=== PATIENT | female | born 2000 | race Caucasian/White ===

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

== ENCOUNTER → 2018-04-29 | Outpatient (CLI) | payer OTHER ==
--- NOTE | 2018-04-29 16:15 | US ---
EXAMINATION TYPE: US transvaginal DATE OF EXAM: 04/29/2018 COMPARISON: NONE CLINICAL HISTORY: R10.2 Pelvic pain. TECHNIQUE: Transvaginal (TV). Date of LMP: 04/20/18 EXAM MEASUREMENTS: Uterus: 6.6 x 2.7 x 3.7 cm Endometrial Stripe: 0.49 cm Right Ovary: Obscured by overlying bowel gas Left Ovary: Obscured by overlying bowel gas Technically difficult study, patient of large body habitus. 1. Uterus: wnl 2. Endometrium: wnl 3. Right Ovary: Obscured by overlying bowel gas 4. Left Ovary: Obscured by overlying bowel gas 5. Bilateral Adnexa: wnl 6. Posterior cul-de-sac: wnl IMPRESSION: Obscuration of the ovaries by overlying bowel gas. Uterus is unremarkable and endometrial thickness is within normal limits.
== END ==
LOC: RADUSWWP 15:35
PROVIDERS: ATTEND Family Medicine
DX: R10.2 Pelvic and perineal pain (principal)
CPT/HCPCS: 76830

== ENCOUNTER 2018-05-27 16:48 | Emergency (ER) | payer OTHER ==
[2018-05-27 17:16] VITALS: BP 120/79; PULSE 96; RESP 18; TEMP 98
--- NOTE | 2018-05-27 18:34 | ED ---
General Adult HPI - General Chief complaint: Extremity Injury, Lower Stated complaint: Lf ankle injury Time Seen by Provider: 05/27/18 17:30 Source: patient, RN notes reviewed, old records reviewed Mode of arrival: wheelchair Limitations: no limitations - History of Present Illness Initial comments: 18-year-old female patient with no pertinent past medical history presents to ED with left ankle inversion injury. Patient ports that she was carrying an object off a [employer] walking down a ramp when she actually stepped off the wall and falling. Patient reports that she didn't suffer the left ankle inversion injury and fall to the ground. Patient denies any trauma to head or neck, denies any loss of consciousness, denies any other injury. Patient has not been ambulatory since fall. Patient denies all other complaints. Patient states that she is not . Systemic: Pt denies fatigue, fever/chills, rash. Pt denies weakness, night sweats, weight loss. Neuro: Pt denies headache, visual disturbances, syncope or pre-syncope. HEENT: Pt denies ocular discharge or irritation, otalgia, rhinorrhea, pharyngitis or notable lymphadenopathy. Cardiopulmonary: Pt denies chest pain, SOB, heart palpitations, dyspnea on exertion. Abdominal/GI: Pt denies abdominal pain, n/v/d. : Pt denies dysuria, burning w/ urination, frequency/urgency. Denies new onset urinary or bowel incontinence. MSK: Pt denies loss of strength or function in extremities. Neuro: Pt denies new onset weakness, paresthesias. - Related Data Previous Rx's Medication Instructions Recorded Amoxic-Pot Clav 875-125Mg 1 tab PO Q12HR #20 tablet 06/02/16 [Augmentin 875-125] Allergies Allergy/AdvReac Type Severity Reaction Status Date / Time No Known Allergies Allergy Verified 05/27/18 17:16 Review of Systems ROS Statement: Those systems with pertinent positive or pertinent negative responses have been documented in the HPI. ROS Other: All systems not noted in ROS Statement are negative. Past Medical History Past Medical History: No Reported History History of Any Multi-Drug Resistant Organisms: None Reported Past Surgical History: No Surgical Hx Reported Past Psychological History: Anxiety, Bipolar, Depression Smoking Status: Current every day smoker Past Alcohol Use History: None Reported Past Drug Use History: None Reported General Exam - General Exam Comments Initial Comments: Constitutional: NAD, AOX3, Pt has pleasant affect. HEENT: NC/AT, trachea midline, neck supple, no lymphadenopathy. Posterior pharynx non erythematous, without exudates. External ears appear normal, without discharge. Mucous membranes moist. Eyes PERRLA, EOM intact. There is no scleral icterus. No pallor noted. Cardiopulmonary: RRR, no murmurs, rubs or gallops, no JVD noted. Lungs CTAB in anterior and posterior wolf. No peripheral edema. Abdominal exam: Abdomen soft and non-distended. Abdomen non-tender to palpation in all 4 quadrants. Bowel sounds active in LLQ. No hepatosplenomegaly. No ecchymosis Neuro: CN II-XII grossly intact. No nuchal rigidity. MSK: Left lateral malleolus mildly tender to palpation, no ecchymoses, plantar and dorsiflexion intact, patient able to wiggle toes, neurovascularly intact. No posterior calf tenderness bilaterally, homans sign negative bilaterally. Posterior tibialis and radial pulse +2 bilaterally. Sensation intact in upper and lower extremities. Full active ROM in upper and lower extremities, 5/5 stregnth. Limitations: no limitations Course Vital Signs 05/27/18 17:12 Temperature 98 F Pulse Rate 96 Respiratory 18 Rate Blood Pressure 120/79 O2 Sat by Pulse 99 Oximetry Medical Decision Making - Medical Decision Making 18-year-old female patient with no pertinent past medical history presents to ED with left ankle inversion injury. Patient ports that she was carrying an object off a [employer] walking down a ramp when she actually stepped off the wall and falling. Patient reports that she didn't suffer the left ankle inversion injury and fall to the ground. Patient denies any trauma to head or neck, denies any loss of consciousness, denies any other injury. Patient has not been ambulatory since fall. Patient denies all other complaints. Patient states that she is not . Patient vital signs stable, afebrile. Physical exam displayed: Left lateral malleolus mildly tender to palpation, no ecchymoses, plantar and dorsiflexion intact, patient able to wiggle toes, neurovascularly intact. No posterior calf tenderness bilaterally, homans sign negative bilaterally. Posterior tibialis and radial pulse +2 bilaterally. Sensation intact in upper and lower extremities. Full active ROM in upper and lower extremities, 5/5 stregnth. Plain films of left ankle and foot do not display any acute process. Patient has pain with ambulation. Patient to be placed in an Jayjay wrap and left ankle. Patient is conscious, not bear weight. Patient to follow with primary care provider tomorrow, orthopedic consult tomorrow. Patient return to ER if Symptoms worsen or new signs symptoms develop. Case discussed with Dr. España. Disposition Clinical Impression: Left ankle sprain Disposition: HOME SELF-CARE Condition: Stable Instructions (If sedation given, give patient instructions): Ankle Sprain (ED) Additional Instructions: Patient to adhere to previously discussed treatment plan and will take medication(s) as directed. Patient to follow up with PCP in 1-2 days. Patient to return to ED if symptoms do not improve. Please follow-up with primary care provider tomorrow. Please contact orthopedic consult tomorrow. Please do not bear weight on left ankle. Please use crutches. Use Tylenol/Motrin as needed for pain. Is patient prescribed a controlled substance at d/c from ED?: No Referrals: Fabiola Blandon MD [Primary Care Provider] - 1-2 days Chirag Wheat MD [STAFF PHYSICIAN] - 1-2 days
--- NOTE | 2018-05-27 18:43 | XR ---
PROCEDURE: XR foot complete LT - 3V DATE AND TIME: 05/27/2018 5:50 PM CLINICAL INDICATION: PHH; Pain TECHNIQUE: Department protocol COMPARISON: None FINDINGS: There is no fracture or malalignment. The soft tissues are unremarkable. IMPRESSION: NO ACUTE PROCESS.
--- NOTE | 2018-05-27 18:44 | XR ---
PROCEDURE: XR ankle complete LT - 3V DATE AND TIME: 05/27/2018 5:50 PM CLINICAL INDICATION: PHH; Pain TECHNIQUE: Department protocol COMPARISON: None FINDINGS: There is no fracture or malalignment. The soft tissues are unremarkable. IMPRESSION: NO ACUTE PROCESS.
== END 2018-05-27 19:09 | disposition home or self-care (01) ==
LOC: EC 16:48
DX: S93.402A Sprain of unspecified ligament of left ankle, initial encounter (principal); F17.200 Nicotine dependence, unspecified, uncomplicated; W10.2XXA Fall (on)(from) incline, initial encounter; Y93.01 Activity, walking, marching and hiking; Y93.89 Activity, other specified; Y92.812 Truck as the place of occurrence of the external cause
CPT/HCPCS: 99284

== ENCOUNTER → 2018-06-02 | Outpatient (CLI) | payer OTHER ==
--- NOTE | 2018-06-04 07:07 | MR ---
EXAMINATION TYPE: MR ankle LT wo con DATE OF EXAM: 06/02/2018 COMPARISON: Left ankle and foot x-ray 6 days ago. HISTORY: Strain injury per order. Follow injury with pain swelling and redness for one week per patie nt. Standard multiplanar, multisequence MRI departmental protocol Multiplanar, multisequence images of the left ankle were acquired. FINDINGS: Distal Achilles tendon is felt intact. Visualized plantar fascia is intact and within nain l limits. The peroneal is brevis and longus tendons are intact. There is some mild adjacent edema at level of t he mid calcaneus noted axial image 10. There is mild to moderate subcutaneous edema at level of medial malleolus axial image 25. Some focal fluid signal surrounds the PT tendon distal to this at level of anterior talus axial image 17. Addit ional focal fluid signal surrounds FDL tendon near hindfoot and midfoot junction just anterior to the calcaneus axial image 11. FHL show subtle area of central increased signal axial image 17 near taloc alcaneal junction with some surrounding fluid extending distally. Extensor tendons anteriorly are intact. The anterior tibiofibular and the anterior talofibular ligaments are felt intact on axial images. Med ial deltoid ligament is felt intact. Normal sinus tarsi fat is seen. Ankle mortise symmetry is maintained. Coronal images are suboptimal d ue to obliquity. Bone marrow signal intensity is maintained. Lisfranc joints are felt preserved. Ther e are small to moderate size posterior tibiotalar joint effusion. IMPRESSION: Areas of partial tear along the FHL tendon with tenosynovitis involving all the flexor te ndons. Mild to moderate residual soft tissue swelling over the medial malleolus. No full-thickness li gamentous or tendon tear is seen.
== END | disposition home or self-care (01) ==
LOC: RADMRIMAIN 11:20
PROVIDERS: ATTEND Family Medicine
DX: S96.012A Strain of muscle and tendon of long flexor muscle of toe at ankle and foot level, left foot, initial encounter (principal); M65.872 Other synovitis and tenosynovitis, left ankle and foot

== ENCOUNTER 2019-04-19 18:53 | Emergency (ER) | payer OTHER ==
[2019-04-19 18:58] VITALS: RESP 18
[2019-04-19] MEDS ORDERED: SODIUM CHLORIDE 0.9% 1,000 ML IV STA (19:17)
--- NOTE | 2019-04-19 19:17 | ED ---
Chest Pain HPI - General Chief Complaint: Chest Pain Stated Complaint: chest pain Time Seen by Provider: 04/19/19 19:00 Source: patient, RN notes reviewed, old records reviewed Mode of arrival: ambulatory Limitations: no limitations - History of Present Illness Initial Comments: This is a 18-year-old female DF for evaluation of chest pain. Patient left- sided chest pain tenderness to palpation with shortness of breath and anxiety. History of underlying anxiety, is a smoker but has no other significant medical history. No recent travel history or surgical history. Patient states she was seen at [facility] yesterday for chest pain and discharged home with all her findings were normal per her evaluation. Patient symptoms progressively worse tonight no worse now. MD Complaint: chest pain -: days(s) Onset: during rest, during exertion Pain Location: substernal, left chest Pain Radiation: none Severity: moderate Severity scale (1-10): 5 Quality: sharp Consistency: constant, intermittent Worsens With: nothing Anginal Symptoms: nausea, dyspnea Treatments Prior to Arrival: none - Related Data Previous Rx's Medication Instructions Recorded Amoxic-Pot Clav 875-125Mg 1 tab PO Q12HR #20 tablet 06/02/16 [Augmentin 875-125] Allergies Allergy/AdvReac Type Severity Reaction Status Date / Time No Known Allergies Allergy Verified 04/19/19 18:58 Review of Systems ROS Statement: Those systems with pertinent positive or pertinent negative responses have been documented in the HPI. ROS Other: All systems not noted in ROS Statement are negative. EKG Findings - EKG Comments: EKG Findings:: EKG shows sinus a rate of 100, IA 1:30, QRS 86, QTc 446 Past Medical History Past Medical History: No Reported History History of Any Multi-Drug Resistant Organisms: None Reported Past Surgical History: No Surgical Hx Reported Past Psychological History: Anxiety, Bipolar, Depression Smoking Status: Current every day smoker Past Alcohol Use History: None Reported Past Drug Use History: None Reported General Exam Limitations: no limitations General appearance: alert, in no apparent distress, anxious Head exam: Present: atraumatic, normocephalic, normal inspection Eye exam: Present: normal appearance, PERRL, EOMI. Absent: scleral icterus, conjunctival injection, periorbital swelling ENT exam: Present: normal exam, mucous membranes moist Neck exam: Present: normal inspection. Absent: tenderness, meningismus, lymphadenopathy Respiratory exam: Present: normal lung sounds bilaterally. Absent: respiratory distress, wheezes, rales, rhonchi, stridor Cardiovascular Exam: Present: normal rhythm, tachycardia, normal heart sounds. Absent: systolic murmur, diastolic murmur, rubs, gallop, clicks GI/Abdominal exam: Present: soft, normal bowel sounds. Absent: distended, tenderness, guarding, rebound, rigid Extremities exam: Present: normal inspection, full ROM, normal capillary refill. Absent: tenderness, pedal edema, joint swelling, calf tenderness Back exam: Present: normal inspection Neurological exam: Present: alert, oriented X3, CN II-XII intact Psychiatric exam: Present: normal affect, normal mood Skin exam: Present: warm, dry, intact, normal color. Absent: rash Course Vital Signs 04/19/19 04/19/19 18:55 21:40 Temperature 98.8 F 98.4 F Pulse Rate 117 H 96 Respiratory 18 18 Rate Blood Pressure 116/65 122/74 O2 Sat by Pulse 100 100 Oximetry - Reevaluation(s) Reevaluation #1: 04/19/19 19:16 Medical records reviewed chest pain is relatively resolved and patient is ok for discharge patient in no acute distress to follow up w PCP Chest Pain MDM - MDM 18-year-old female with atypical chest pain here in the ER, Ms. mild anxiety but no other significant findings. No medical history, patient is CT here negative for acute disease a patient can be discharged home Disposition Clinical Impression: Atypical chest pain, Chest pain Disposition: HOME SELF-CARE Instructions (If sedation given, give patient instructions): Chest Pain (ED) Is patient prescribed a controlled substance at d/c from ED?: No Referrals: Fabiola Blandon MD [Primary Care Provider] - 1-2 days
[2019-04-19 20:07] LABS: Basophils # (A) 0.1 k/uL (0-0.2); Basophils % (A) 1 %; Eosinophils # (A) 0.1 k/uL (0-0.7); Eosinophils % (A) 2 %; HCT 41.9 % (34.0-46.0); HGB 13.8 gm/dL (11.4-16.0); Lymphocytes # (A) 0.7 k/uL (1.0-4.8); Lymphocytes % (A) 11 %; MCH 29.2 pg (25.0-35.0); MCHC 32.9 g/dL (31.0-37.0); MCV 88.7 fL (80.0-100.0); Mean Platelet Volume 7.5; Monocytes # (A) 0.4 k/uL (0-1.0); Monocytes % (A) 7 %; Neutrophils # (A) 5.3 k/uL (1.3-7.7); Neutrophils % (A) 78 %; Platelet Count 221 k/uL (150-450); RBC 4.72 m/uL (3.80-5.40); RDW 12.4 % (11.5-15.5); WBC 6.8 k/uL (4.0-11.0)
[2019-04-19 20:38] LABS: ALT 33 U/L (4-34); African American GFR (CKD) >90 (>60 ml/min/1.73 sqM); Albumin 3.8 g/dL (3.5-5.0); Anion Gap 6 mmol/L; Blood Urea Nitrogen 12 mg/dL (7-17); Carbon Dioxide 25 mmol/L (22-30); Chloride 105 mmol/L (98-107); Glucose 77 mg/dL (74-99); Non-African American GFR(CKD) >90 (>60 ml/min/1.73 sqM); Sodium 136 mmol/L (137-145); Total Bilirubin 0.5 mg/dL (0.2-1.3); Total Protein 6.7 g/dL (6.3-8.2)
[2019-04-19 20:40] LABS: AST 34 U/L (14-36); Alkaline Phosphatase 78 U/L (38-126); Magnesium 1.8 mg/dL (1.6-2.3); Potassium 4.3 mmol/L (3.5-5.1)
--- NOTE | 2019-04-19 20:53 | CT ---
EXAMINATION TYPE: CT angio chest DATE OF EXAM: 04/19/2019 COMPARISON: HISTORY: Chest pain and cough since today CT DLP: 888.8 mGycm Automated exposure control for dose reduction was used. CONTRAST: Performed with IV Contrast, patient injected with 100 mL of Isovue 370. There are 3-D post processed images. The lungs are clear of infiltrate. There is no pleural effusion. There is no mediastinal adenopathy. Thoracic aorta is intact. There is no aneurysm or dissection. Heart size is normal. There is no peric ardial effusion. There are no hilar masses. There is normal contrast opacification of the pulmonary arteries. There ar e no filling defects. Thoracic spine is intact. There is no compression fracture. Bony thorax is intact. IMPRESSION: Normal exam. No evidence of pulmonary embolism.
[2019-04-19 21:46] VITALS: BP 122/74; PULSE 96; TEMP 98.4
== END 2019-04-19 21:40 | disposition home or self-care (01) ==
LOC: EC 18:53
DX: R07.89 Other chest pain (principal); F41.9 Anxiety disorder, unspecified; R00.0 Tachycardia, unspecified; R11.0 Nausea; R06.02 Shortness of breath; F17.200 Nicotine dependence, unspecified, uncomplicated
CPT/HCPCS: 36415; 93005; 83880; 80053; 83690; 83735; 84484; 85025; 71275; 99285; 96360; 96361; Q9967

== ENCOUNTER → 2019-11-17 | Outpatient (CLI) | payer BC, OTHER ==
--- NOTE | 2019-11-17 15:56 | US ---
EXAMINATION TYPE: US transvaginal DATE OF EXAM: 11/17/2019 COMPARISON: US April 29, 2018. CLINICAL HISTORY: N93.8 Dysfunctional Uterine Bleeding. DUB, pt being worked up for PCOS TECHNIQUE: Transvaginal (TV). Transvaginal sonographic images of the pelvis were acquired. Date of LMP: 11/03/2019 EXAM MEASUREMENTS: Uterus: 6.5 x 3.3 x 3.3 cm Endometrial Stripe: 0.5 cm Right Ovary: 3.4 x 2.1 x 2.2 cm Left Ovary: 2.7 x 1.8 x 1.6 cm 1. Uterus: Anteverted wnl 2. Endometrium: wnl 3. Right Ovary: Peripheral follicles 4. Left Ovary: Peripheral follicles 5. Bilateral Adnexa: wnl 6. Posterior cul-de-sac: wnl Persistent heterogeneous uterus with endometrial stripe within normal limits for late proliferative p hase of menstrual cycle. No free fluid in pelvic cul-de-sac. Both ovaries seen and normal in size with scattered peripheral follicles. No suspicious adnexal kings s. IMPRESSION: Fairly unremarkable study.
== END | disposition home or self-care (01) ==
LOC: RADUSWWP 15:01
PROVIDERS: ATTEND Family Medicine
DX: N93.8 Other specified abnormal uterine and vaginal bleeding (principal)
CPT/HCPCS: 76830

== ENCOUNTER → 2020-04-06 | Outpatient (CLI) | payer BC, OTHER ==
--- NOTE | 2020-04-07 12:38 | ECHOF ---
Referral Reason:R06.02 Shortness of Breath MEASUREMENTS -------- HEIGHT: 157.5 cm WEIGHT: 122.5 kg BP: RVIDd: 2.4 cm (< 3.3) IVSd: 1.1 cm (0.6 - 1.1) LVIDd: 3.4 cm (3.9 - 5.3) LVPWd: 1.1 cm (0.6 - 1.1) IVSs: 1.6 cm LVIDs: 1.7 cm LVPWs: 1.6 cm LAESV Index (A-L): 10.96 ml/m Ao Diam: 2.4 cm (2.0 - 3.7) AV Cusp: 1.5 cm (1.5 - 2.6) LA Diam: 2.4 cm (2.7 - 3.8) MV EXCURSION: 14.230 mm (> 18.000) MV EF SLOPE: 95 mm/s (70 - 150) EPSS: 0.6 cm MV E Magnus: 1.02 m/s MV DecT: 245 ms MV A Magnus: 0.70 m/s MV E/A Ratio: 1.46 RAP: 5.00 mmHg RVSP: 30.02 mmHg FINDINGS -------- Sinus rhythm. This was a technically adequate study. The left ventricular size is normal. Left ventricular wall thickness is normal. Overall left vent ricular systolic function is normal with, an EF between 55 - 60 %. The diastolic filling pattern is normal for the age of the patient 10.87. The right ventricle is normal in size. Normal LA size by volume 22+/-6 ml/m2. The right atrial size is normal. The aortic valve is trileaflet, and appears structurally normal. No aortic stenosis or regurgitation. The mitral valve is normal. There is trace mitral regurgitation. The tricuspid valve appears structurally normal. Trace tricuspid regurgitation present. Right tatiana tricular systolic pressure is normal at < 35 mmHg. There is no pulmonic regurgitation present. The aortic root size is normal. IVC Not well visulized. There is no pericardial effusion. CONCLUSIONS -------- 1. Left ventricular wall thickness is normal. 2. Overall left ventricular systolic function is normal with, an EF between 55 - 60 %. 3. The aortic valve is trileaflet, and appears structurally normal. No aortic stenosis or regurgitati on. 4. There is trace mitral regurgitation. 5. Trace tricuspid regurgitation present. 6. There is no pericardial effusion. MACHINE BANDER AND CELLOPHANER HELPER: Nicci Maya RDCS
== END | disposition home or self-care (01) ==
LOC: RADECHMAIN 14:50
PROVIDERS: ATTEND Family Medicine
DX: R06.02 Shortness of breath (principal)
CPT/HCPCS: 93306

== ENCOUNTER 2021-12-22 10:30 | Day surgery (SDC) | payer BC, OTHER ==
[2021-12-20 11:35] VITALS: BMI 47.7
[~2021-12-22 10:30] MED LIST: DEXAMETHASONE SOD PHOSPHATE 4 MG/ML 1 ML VIAL IV ONE; MIDAZOLAM 2 MG/2 ML VIAL IV PRN; ONDANSETRON 4 MG/2 ML VIAL IVP ONE; SCOPOLAMINE 1 MG/72 HR PATCH TRANSDERM ONE
[2021-12-22] MEDS ORDERED: LACTATED RINGERS 1,000 ML IV ONE (11:27)
[2021-12-22] MEDS ORDERED: fentaNYL (PF) 50 MCG/ML 2 ML AMP IVP ONE (12:28)
[2021-12-22] MEDS ORDERED: MIDAZOLAM 2 MG/2 ML VIAL IVP ONE (12:28)
[2021-12-22] MEDS ORDERED: SODIUM CHLORIDE 0.9% (PF) 10 ML VIAL ONE (12:42)
[2021-12-22] MEDS ORDERED: LIDOCAINE 2% INJ 20 MG/ML (2 ML VIAL) ONE (12:42)
[2021-12-22] MEDS ORDERED: PROPOFOL 10 MG/ML 20 ML VIAL IV ONE (12:42)
[2021-12-22] MEDS ORDERED: ROPIVACAINE 5 MG/ML 30 ML VIAL ONE (12:42)
[2021-12-22] MEDS ORDERED: HYDROmorphone (PF) 1 MG/ML ONE (12:42)
[2021-12-22] MEDS ORDERED: fentaNYL (PF) 50 MCG/ML 2 ML AMP ONE (12:42)
[2021-12-22] MEDS ORDERED: MIDAZOLAM 2 MG/2 ML VIAL ONE (12:42)
[2021-12-22] MEDS ORDERED: ceFAZolin 1,000 MG in SODIUM CHLORIDE 0.9% 1,000 ML IRRIGATION ONE (12:46)
--- NOTE | 2021-12-22 13:42 | P.OP ---
Date of Procedure: 12/22/21 Preoperative Diagnosis: Right ankle instability Postoperative Diagnosis: Same Procedure(s) Performed: Secondary repair right lateral ankle ligaments Implants: Arthrex internal brace Arthrex fiber Geronimo anchors 2 Anesthesia: GETA Surgeon: Edy Ludwig Estimated Blood Loss (ml): 2 Pathology: none sent Condition: stable Disposition: PACU Description of Procedure: Prior to the patient being brought to the operating room, anesthesia administered a nerve block on the affected extremity, utilizing ultrasonic guidance and mild sedation. Once completed the patient was taken to the operating room and placed on table supine position. Timeout was taken to co nfirm correct patient identifiers, correct procedure, and correct site of surgery. When all staff in the room were in agreement with the timeout, the patient was induced and placed under general anesthesia. A bump was placed underneath the hip to internally rotate the affected leg. A well-padded tourniquet was placed on the midcalf and then the affected extremity prepped and draped in usual manner. The leg was exsanguinated and the tourniquet inflated to 250 mmHg. Attention was directed over the lateral ankle where a curved incision was made just anterior to the lateral malleolus. The incision was deepened down to the subcutaneous tissue careful to identify, avoid, and retract any neurovascular structures and cauterize any bleeding vessels. Blunt dissection was continued down to level of the lateral ankle joint capsule and ligamentous structures. The soft tissue structures were sharply incised off the anterior surface the lateral malleolus and reflected anteriorly. A ronguer was used to remove the cortical bone off the anterior surface the lateral malleolus which would help facilitate tissue re-adhesion upon repair. With the ankle at 90 and in neutral inversion and eversion, the capsule was palpated on the lateral surface of the talus anterior to the articular surface. A small stab incision was made in the area of the talar body avoiding both the ankle and subtalar joints and near the junction of the neck. A drill hole was then placed utilizing a 3.4 mm drill bit into the talar body avoiding both the ankle and subtalar joints. The hole was then tapped and then the 4.75 mm swivel lock anchor was inserted and impacted and then advanced to proper depth. The same drill bit was used to create the hole for the 3.5 mm anchor in the lateral malleolus. Drill holes for the Arthrex fiber Wilfred anchors were made one inferior and one superior to the 3.4 mm drill hole in the lateral malleolus. With the drill guides for the anchor still in place, the anchors were inserted into the lateral malleolus and impacted to proper depth. The blower and compressor assembler and guide were removed and then tension placed on the suture to lock anchors in place. Once both anchors were in place the wound was thoroughly irrigated with antibiotic saline. The suture on the fiber Geronimo anchors was then used to capture the distal ligamentous and capsular structures on the talus and then with the ankle in maximum dorsiflexion and eversion, the suture was tied repairing the ligament. The 2 arms of the internal brace suture were then passed through the 3.5 mm anchor which was then aligned with the drill hole lateral malleolus. Utilizing described tensioning techniques, the anchor and suture were inserted into the drill hole and then the anchor advanced to lock the suture in place. At that time the ankle was tested for stability where anterior drawer and inversion stress were both negative. The wound was again irrigated with antibiotic saline. The fiber Geronimo suture was used to sew the retinaculum over the lateral malleolus along with the periosteal flap in a pants over vest fashion. Subcu closure was done with 4-0 Monocryl and skin closure done with 3-0 Stratafix in a running subcuticular manner. Dermal glue was applied across the incision and allowed to dry. Steri-Strips are placed across incision. The incision was covered with an Arthrex jumpstart dressing and then a bulky dry dressing. The tourniquet was released and capillary refill return to all digits on the right foot. The patient was then placed in a well-padded well molded plaster posterior mold/sugar tong splint. Ankle was held in neutral position until the splint was dried. Anesthesia was reversed and the patient was taken recovery with vital signs stable.
[2021-12-22 13:48] VITALS: TEMP 96.8
[2021-12-22] MEDS: HYDROmorphone 0.5 MG/0.5 ML SYRINGE IVP PRN ×2 (14:00→14:15)
[2021-12-22] MEDS ORDERED: KETOROLAC 15 MG/ML 1 ML VIAL IVP ONE (14:00)
--- NOTE | 2021-12-22 14:44 | P.ANPRN ---
Procedure Note - Anesthesia - Nerve Block Performed Right Adductor Canal Time Out Performed: Yes (:) Date of Procedure: 12/22/21 Procedure Start Time: Procedure Stop Time: : Location of Patient: PreOp Indication: Acute Post-Operative Pain, Requested by Surgeon (Dr Ludwig) Sedation Type: Sedate with meaningful contact maintained Preparation: Sterile Prep Position: Supine Catheter: None Needle Types: Pajunk Needle Gauge: 21 Ultrasound used to visualize needle placement: Yes Ultrasound used to observe medication spread: Yes Injectate: 0.5% Ropivacaine (see comment for volume) (15cc +5cc PF Normal saline) Blood Aspirated: No Pain Paresthesia on Injection Noted: No Resistance on Injection: Normal Image Stored and Saved: Yes Events: Uneventful and Well Tolerated
--- NOTE | 2021-12-22 14:46 | P.ANPRN ---
Procedure Note - Anesthesia - Nerve Block Performed Right Popliteal Time Out Performed: Yes Date of Procedure: 12/22/21 Procedure Start Time: 12:36 Procedure Stop Time: 12:42 Location of Patient: PreOp Indication: Acute Post-Operative Pain, Requested by Surgeon (Dr Ludwig) Sedation Type: Sedate with meaningful contact maintained Preparation: Sterile Prep Position: Left Lateral Catheter: None Needle Types: Pajunk Needle Gauge: 21 Ultrasound used to visualize needle placement: Yes Ultrasound used to observe medication spread: Yes Injectate: 0.5% Ropivacaine (see comment for volume) (15cc +5cc PF Normal saline) Blood Aspirated: No Pain Paresthesia on Injection Noted: No Resistance on Injection: Normal Image Stored and Saved: Yes Events: Uneventful and Well Tolerated
[2021-12-22] MEDS: LACTATED RINGERS 1,000 ML IV SCH ×2 (14:49→14:52)
[2021-12-22 14:57] VITALS: RESP 18
[2021-12-22 15:22] VITALS: BP 127/65; PULSE 72
== END 2021-12-22 15:52 | disposition home or self-care (01) ==
LOC: OR 10:30
PROVIDERS: ATTEND Podiatrist
DX: M25.371 Other instability, right ankle (principal); G89.18 Other acute postprocedural pain; F31.9 Bipolar disorder, unspecified; F17.200 Nicotine dependence, unspecified, uncomplicated; Z87.2 Personal history of diseases of the skin and subcutaneous tissue; Z82.49 Family history of ischemic heart disease and other diseases of the circulatory system; Z79.899 Other long term (current) drug therapy
CPT/HCPCS: 64447; 64445; 76942; 84703; 27698; C1713 ×2; J2250; J1100; J0690 ×2; J2405; J3010; J1170 ×2; J2795; J1885; J2704; J2001

== ENCOUNTER → 2022-10-17 | Outpatient (CLI) | payer BC, OTHER ==
--- NOTE | 2022-10-17 18:53 | MR ---
EXAMINATION TYPE: MR brain wo/w con DATE OF EXAM: 10/17/2022 COMPARISON: NONE HISTORY: 22-year-old female H53.122 TRANSIENT VISUAL LOSS, LEFT EYE, Vision disturbance TECHNIQUE: Multiplanar, multisequence images of the brain and brainstem were acquired before and aft er administration of 12 mL IV Gadavist. Diffusion weighted imaging is performed. FINDINGS: No evidence for acute infarction, hemorrhage, mass, mass effect, midline shift, herniation, effacemen t of basal cisterns, or extra-axial fluid collection. The ventricles and sulci are age-appropriate. Major intracranial flow voids are intact. We note small caliber to the bilateral vertebral and basila r arteries. T2/FLAIR weighted sequences show no white matter signal abnormality. Midline structures demonstrate normal morphology. The craniocervical junction is normal. Post contrast images demonstrate no evidence of pathologic enhancement. Dural venous sinuses are pat ent. Mucosal retention cyst along the floors of the axillary sinuses measuring up to 2.5 cm. Partial opaci fication posterior right ethmoid air cells. Globes are intact. IMPRESSION: 1. No acute intracranial abnormality seen. No white matter signal changes. No enhancing lesions. 2. 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 Correlate for any chronic symptoms of vertebral basilar insufficiency. 3. 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
== END | disposition home or self-care (01) ==
LOC: RADMRIMAIN 10:11
PROVIDERS: ATTEND Ophthalmology
DX: H53.122 Transient visual loss, left eye (principal); H53.482 Generalized contraction of visual field, left eye; J32.0 Chronic maxillary sinusitis
CPT/HCPCS: 70553; A9585

== ENCOUNTER → 2024-04-08 | Outpatient (CLI) | payer BC, OTHER ==
--- NOTE | 2024-04-08 18:15 | US ---
EXAMINATION TYPE: US transvaginal DATE OF EXAM: 04/08/2024 COMPARISON: Transvaginal ultrasound 11/17/2019, 04/29/2018 CLINICAL INDICATION: Female, 23 years old with history of N93.9 ABN UTERAN AND VAG BLEEDING; Irregula r menses TECHNIQUE: . Transabdominal grayscale sonographic images of the pelvis were acquired. Transvaginal sonographic im ages were medically necessary to better assess the following anatomy: Endometrium Doppler imaging: Not performed. FINDINGS: Date of LMP: 04/03/24 EXAM MEASUREMENTS: Uterus: 5.6x2.8x3.8 cm Endometrial Stripe: 0.2 cm Right Ovary: 3.2x2.3x1.8 cm Left Ovary: 2.9x2.0x2.3 cm 1. Uterus: Anteverted wnl 2. Endometrium: wnl 3. Right Ovary: wnl 4. Left Ovary: wnl 5. Bilateral Adnexa: wnl 6. Posterior cul-de-sac: wnl Unremarkable anteverted uterus without focal lesion. Endometrium is within normal limits. Both ovarie s appear unremarkable. There is color flow identified within both ovaries. No free fluid. IMPRESSION: Unremarkable pelvic ultrasound. [facility], , 04/08/2024 6:13 PM
== END | disposition home or self-care (01) ==
LOC: RADUSWWP 14:30
PROVIDERS: ATTEND Internal Medicine Geriatric Medicine
DX: N93.9 Abnormal uterine and vaginal bleeding, unspecified (principal); N92.6 Irregular menstruation, unspecified
CPT/HCPCS: 76830

== ENCOUNTER → 2024-05-14 | Outpatient (CLI) | payer BC, OTHER ==
[2024-05-15 02:12] LABS: Basophils # (A) 0.05 X 10*3/uL (0.00-0.10); Basophils % (A) 0.4 %; Eosinophils % (A) 3.2 %; HCT 43.5 % (37.2-46.3); HGB 14.7 g/dL (12.0-15.0); Lymphocytes # (A) 3.11 X 10*3/uL (0.90-5.00); Lymphocytes % (A) 25.2 %; MCH 30.6 pg (27.0-32.0); MCHC 33.8 g/dL (32.0-37.0); MCV 90.4 FL (80.0-97.0); Mean Platelet Volume 12.1 FL (9.5-12.2); Monocytes # (A) 0.79 X 10*3/uL (0.20-1.00); Monocytes % (A) 6.4 %; NRBC Per 100 WBC 0 X 10*3/uL (0.00-0.01); Neutrophils # (A) 7.95 X 10*3/uL (1.80-7.70); Neutrophils % (A) 64.5 %; Platelet Count 288 X 10*3/uL (140-440); RBC 4.81 X 10*6/uL (4.10-5.20); RDW 12.3 % (11.5-14.5); WBC 12.34 X 10*3/uL (4.50-10.00)
[2024-05-15 02:43] LABS: ALT 27 U/L (8-44); AST 15 U/L (13-35); Albumin 4.3 g/dL (3.8-4.9); Albumin/Globulin Ratio 1.87 Ratio (1.60-3.17); Alkaline Phosphatase 103 U/L (41-126); Amylase 59 U/L (23-121); Blood Urea Nitrogen 6.3 mg/dL (9.0-27.0); Calcium 9.4 mg/dL (8.7-10.3); Carbon Dioxide 20.1 mmol/L (21.6-31.8); Chloride 108 mmol/L (96-109); Globulin 2.3 g/dL (1.6-3.3); Glucose 99 mg/dL (70-110); LDH 154 U/L (120-246); Lipase 42 U/L (14-63); Sodium 140 mmol/L (135-145); Total Bilirubin 0.3 mg/dL (0.3-1.2); Total Protein 6.6 g/dL (6.2-8.2)
== END | disposition home or self-care (01) ==
LOC: LABWHC1 16:21
PROVIDERS: ATTEND Family Medicine
DX: K85.20 Alcohol induced acute pancreatitis without necrosis or infection (principal); K90.41 Non-celiac gluten sensitivity; R30.0 Dysuria; F10.120 Alcohol abuse with intoxication, uncomplicated
CPT/HCPCS: 36415; 80053; 80320; 82150; 83615; 83690; 84443; 84478; 85025

== ENCOUNTER 2024-09-16 06:33 | Day surgery (SDC) | payer BC, OTHER ==
[~2024-09-16 06:33] MED LIST changes: +ATROPINE OPHTH SOLN 1% 5ML BTL OPHTHALMIC PRN; -DEXAMETHASONE SOD PHOSPHATE 4 MG/ML 1 ML VIAL IV ONE; -MIDAZOLAM 2 MG/2 ML VIAL IV PRN; -ONDANSETRON 4 MG/2 ML VIAL IVP ONE; -SCOPOLAMINE 1 MG/72 HR PATCH TRANSDERM ONE; +TETRACAINE 0.5% OPHTH (PF) DROPS 4 ML BTL OP PRN
[2024-09-16] MEDS: PILOCARPINE 2% OPHTH DROPS 15 ML BTL OP PRN (07:23)
[2024-09-16] MEDS: LIDOCAINE 1% (10MG/ML) FOR IV START INTRADERMA STA (07:25)
[2024-09-16] MEDS: LACTATED RINGERS 1,000 ML IV SCH (07:25)
[2024-09-16] MEDS: IV FLUID CONTINUATION 1,000 ML IV ONE (07:25)
[2024-09-16 07:41] VITALS: TEMP 97.8
[2024-09-16] MEDS: MIDAZOLAM 2 MG/2 ML VIAL IV ONE (07:51)
[2024-09-16] MEDS ORDERED: fentaNYL (PF) 50 MCG/ML 2 ML AMP ONE (08:20)
[2024-09-16] MEDS ORDERED: MIDAZOLAM 2 MG/2 ML VIAL ONE (08:20)
[2024-09-16] MEDS: BALANCED SALT IRRIG SOLN COMB2 15 ML IRRIG.SOLN IRRIGATION ONE (08:46)
[2024-09-16] MEDS: BUPIVACAIN-EPI 0.5%-1:200,000 30 ML VIAL SQ ONE (08:47)
[2024-09-16] MEDS: DUOVISC KIT (GREEN BOX) INTRAOCULA ONE (08:47)
[2024-09-16] MEDS: FLUORESCEIN STRIPS 1 MG STRIP MISCELLANE ONE ×2 (08:47)
[2024-09-16] MEDS: ATROPINE OPHTH SOLN 1% 5ML BTL LEFT EYE ONE (08:48)
[2024-09-16] MEDS: MOXIFLOXACIN HCL 0.5% DROPS 3 ML BTL LEFT EYE ONE (08:48)
[2024-09-16] MEDS: mitoMYcin for Eyes 0.06 MG, EMPTY SYRINGE 1 SYR OP PRN (08:49)
--- NOTE | 2024-09-16 09:36 | P.OP ---
Date of Procedure: 09/16/24 Preoperative Diagnosis: congenital glaucoma left Postoperative Diagnosis: same Procedure(s) Performed: glaucoma shunt implantation with trabeculectomy OS with MMC Implants: Express P-50 Anesthesia: MAC, regional Surgeon: Clifton Banuelos Pathology: none sent Condition: stable Disposition: same day Indications for Procedure: glaucoma control Operative Findings: no complications
[2024-09-16 09:52] VITALS: RESP 16
[2024-09-16 10:21] VITALS: BP 127/87; PULSE 66
--- NOTE | 2024-09-17 09:23 | OP ---
OPERATIVE REPORT DATE OF SERVICE : 09/16/2024 PREOPERATIVE DIAGNOSIS: Congenital glaucoma. POSTOPERATIVE DIAGNOSIS: Congenital glaucoma. OPERATION: Shunt implantation with mitomycin of the left eye. ANESTHESIA: Local with monitored anesthesia care. ESTIMATED BLOOD LOSS: Less than 5 mL. SPECIMEN TAKEN: None. NARRATIVE: After obtaining the appropriate consent, the patient was brought to the operating room. There, she was placed on cardiac monitoring and prepped and draped in the usual sterile manner. She was approached from the 12 o'clock position and a Schiotz tonometer was used to check the intraocular pressure, which was noted to be approximately 54.7 mmHg using a 10 g weight. This was followed by a traction suture through the 12 o'clock position of the cornea with a 6-0 silk suture, which was then secured to the eye drape. A small superior nasal entry through the conjunctiva down to bare sclera was created using Etta scissors and this was followed by blunt dissection using the scissors to separate Tenon capsule as widely as possible from the 10 o'clock through 3 o'clock position on the patient's eye. This area was infiltrated using 1% lidocaine with epinephrine on a 27-gauge cannula through the tissue. At the 12 o'clock area of the eye, an area adjacent to the corneal limbus was chosen for the placement of the shunt. Control of bleeding was primarily with wet-field cautery, especially around the area of where the new sclerotomy was to be performed. The area was dried and using a 2.5 mm crescent blade, a partial thickness scleral flap was created and approximately 3 mm posterior limbus and advanced towards the corneal limbus. Each side of the little pocket was opened using Yang tenotomy scissors. Once this area was clean and dried, Mitomycin 0.2 mg/mL was placed in the area underneath the new partial-thickness flap and covered with the conjunctiva. This was left covered for approximately 4 minutes. The mitomycin sponge was removed as well as contaminated instruments and the area was copiously irrigated with balanced salt solution. At the apex of the partial-thickness flap, a 27-gauge hypodermic needle was advanced through the apex parallel to the iris to enter into the anterior chamber. Following the 27-gauge opening was an express shunt, model P50 was advanced through the opening created by the 27-gauge needle. Marked reflux of aqueous from the anterior chamber was encountered almost to the point of anterior chamber collapse. This did slow after a few moments and the anterior chamber was deepened from a paracentesis created at the 1 o'clock position. The scleral flap was then secured to its bed using interrupted 10-0 nylon sutures, which were trimmed close. Additionally, because of the heaviness of the Tenon capsule, a large portion of Tenon was removed from the base of the conjunctiva allowing for more volume in which the aqueous may flow. One last check of hemostasis was confirmed with the bipolar cautery and the conjunctiva was then closed using 8-0 Vicryl sutures. Confirmation of watertight integrity was performed using a fluorescein strip. Once this was completed, a strip of Maxitrol ointment was placed in the patient's eye and the eye was patched and shielded in the usual manner. There were no complications from the procedure. She tolerated the procedure well and was returned to outpatient recovery in good condition. MMMERLIN / IJAurora: [id number] /
== END 2024-09-16 10:30 | disposition home or self-care (01) ==
LOC: OR 06:33
PROVIDERS: ATTEND Ophthalmology
DX: H40.1123 Primary open-angle glaucoma, left eye, severe stage (principal); H40.1111 Primary open-angle glaucoma, right eye, mild stage; H54.42A5 Blindness left eye category 5, normal vision right eye; H52.12 Myopia, left eye; F17.200 Nicotine dependence, unspecified, uncomplicated; F41.9 Anxiety disorder, unspecified; F32.A Depression, unspecified; F43.10 Post-traumatic stress disorder, unspecified; F12.90 Cannabis use, unspecified, uncomplicated; Z88.5 Allergy status to narcotic agent; Z88.6 Allergy status to analgesic agent; Z79.899 Other long term (current) drug therapy
CPT/HCPCS: 81025; 66180; C1783; J2250; J3010

== ENCOUNTER 2024-09-30 09:42 | Day surgery (SDC) | payer OTHER ==
[~2024-09-30 09:42] MED LIST changes: -ATROPINE OPHTH SOLN 1% 5ML BTL OPHTHALMIC PRN
[2024-09-30] MEDS: PILOCARPINE 2% OPHTH DROPS 15 ML BTL OP PRN (12:02)
[2024-09-30 12:05] VITALS: TEMP 98
[2024-09-30] MEDS: LACTATED RINGERS 1,000 ML IV SCH (12:18)
[2024-09-30] MEDS: fentaNYL (PF) 50 MCG/ML 2 ML AMP IVP STA (12:24)
[2024-09-30] MEDS: DEXAMETHASONE SOD PHOSPHATE 4 MG/ML 1 ML VIAL IVP STA (12:26)
[2024-09-30] MEDS: ONDANSETRON 4 MG/2 ML VIAL IVP STA (12:26)
[2024-09-30] MEDS: IV FLUID CONTINUATION 1,000 ML IV ONE (12:28)
[2024-09-30] MEDS ORDERED: fentaNYL (PF) 50 MCG/ML 2 ML AMP ONE (12:51)
[2024-09-30] MEDS ORDERED: MIDAZOLAM 2 MG/2 ML VIAL ONE (12:51)
[2024-09-30] MEDS: BALANCED SALT IRRIG SOLN COMB2 15 ML IRRIG.SOLN IRRIGATION ONE (13:21)
[2024-09-30] MEDS: FLUORESCEIN STRIPS 1 MG STRIP RIGHT EYE ONE ×3 (13:21)
[2024-09-30] MEDS: DUOVISC KIT (GREEN BOX) INTRAOCULA ONE (13:23)
[2024-09-30] MEDS: BUPIVACAIN-EPI 0.5%-1:200,000 30 ML VIAL SQ ONE (13:23)
[2024-09-30] MEDS: mitoMYcin for Eyes 0.06 MG, EMPTY SYRINGE 1 SYR OP PRN (13:23)
[2024-09-30] MEDS: ATROPINE OPHTH SOLN 1% 5ML BTL OPHTHALMIC PRN (13:23)
--- NOTE | 2024-09-30 14:23 | P.OP ---
Date of Procedure: 09/30/24 Preoperative Diagnosis: congentital glaucoma Postoperative Diagnosis: same Procedure(s) Performed: shunt with 0.2mg/ml MMC x 4' Implants: express shunt Anesthesia: MAC Surgeon: Clifton Banuelos Pathology: none sent Condition: stable Disposition: same day Indications for Procedure: glaucoma control Operative Findings: no complications
[2024-09-30 14:25] VITALS: RESP 14
[2024-09-30 14:46] VITALS: BP 119/90; PULSE 66
--- NOTE | 2024-09-30 21:58 | OP ---
OPERATIVE REPORT DATE OF SERVICE : 09/30/2024 PREOPERATIVE DIAGNOSIS: Congenital glaucoma. POSTOPERATIVE DIAGNOSIS: Congenital glaucoma. OPERATION: Express shunt implantation with mitomycin of the right eye. ANESTHESIA: Topical. ESTIMATED BLOOD LOSS: Less than 5 mL. SPECIMEN TAKEN: None. NARRATIVE: After obtaining the appropriate consent, the patient was brought to the operating room. There, she was placed under cardiac monitoring and prepped and draped in the usual sterile manner. She was approached from her 12 o'clock position and using a 6-0 silk suture, a traction suture was placed through the corneal limbus to secure the eye and down gaze to the operating drape. At the superior temporal quadrant, a small incision with sharp and blunt dissection using Etta scissors and a 0.12 HESIODOjo forceps was used to make an incision down to bare sclera. Once this opening was created using 2% lidocaine with epinephrine, a large area underneath Tenon's capsule was infiltrated with this solution. Once the anesthetic had a few moments to setup, then using sharp and blunt dissection underneath the conjunctival tissue from 9 o'clock to 3 o'clock and well over the superior rectus muscle of the eye was accomplished using the scissors. A small peritomy at the 12 o'clock position was then performed as well. Bipolar cautery was used to control for hemostasis and at the corneal limbus, a 3 x 3 mm area was marked with a bare care caliper and outlined using the bipolar cautery. A crescent blade was used to then create a partial thickness dissection into sclera and subsequently was advanced anteriorly, creating a pocket into the corneal limbus. Each side of the pocket was then incised using the Etta scissors. Any additional bleeding was controlled again with bipolar cautery. At this point, mitomycin 0.2 mg/mL on a Weck-Rina sponge was placed at the apex of this partial thickness scleral flap and was closed under conjunctival tissue and this was allowed to stay in contact with the tissue for 4 minutes. Once the time had subsided, both Weck-Rina sponge as well as the forceps used to place the sponge were removed from the field and the eye was copiously irrigated with balanced salt solution. Heavy Tenon's capsular material was also removed from the anterior portion of the conjunctival tissue. Using a 25-gauge hypodermic needle as a trocar, marked with gentian eladio, this was placed at the apex of the partial-thickness scleral flap and advanced into the anterior chamber. Noted pressures before beginning surgery using a Schiotz tonometer was listed as 43.4 mmHg with a 10 g weight and immediately on entry into the anterior chamber, the intraocular pressure of the eye dropped directly. The anterior chamber needed to be deepened slightly, so a small paracentesis at the 1 o'clock position was performed and a small amount of Amvisc was used to posteriorly displace iris from where the express shunt was going to reside using the previously created incision with the 25-gauge needle, an express shunt model P50 was advanced through the opening and into the anterior chamber without difficulty. Again, efflux of aqueous fluid from the anterior chamber was noted and confirmed using a fluorescein strip. The flap was then brought down over the top of the express shunt and two 10-0 nylon sutures were secured near the posterior aspect of the partial-thickness scleral flap. These were trimmed and again confirmation of aqueous was noted using the fluorescein strip. Conjunctiva was then brought over the superior limbus of the cornea and was secured using 8-0 Vicryl suture and the anterior chamber of the eye was deepened with balanced salt solution from the paracentesis and fluorescein was used to confirm watertight integrity of the conjunctiva over the superior limbus of the cornea. The 6-0 traction suture was removed from the eye. The patient then received 2 drops of 5% timolol followed by 2 drops of 1% atropine. She was then lightly patched and shielded in the usual manner. There were no complications from the procedure. She tolerated the procedure well and was returned to outpatient recovery in good condition. MMODL / IJN: [id number] /
== END 2024-09-30 15:12 | disposition home or self-care (01) ==
LOC: OR 09:42
PROVIDERS: ATTEND Ophthalmology
DX: H40.1111 Primary open-angle glaucoma, right eye, mild stage (principal); H40.1123 Primary open-angle glaucoma, left eye, severe stage; H54.42A5 Blindness left eye category 5, normal vision right eye; H52.12 Myopia, left eye; F17.210 Nicotine dependence, cigarettes, uncomplicated; Z98.890 Other specified postprocedural states; Z88.5 Allergy status to narcotic agent; Z88.6 Allergy status to analgesic agent; Z79.899 Other long term (current) drug therapy
CPT/HCPCS: 66180; J1100; J2405; J3010; 81025